=== PATIENT | female | born 1955 | race Caucasian/White ===

== ENCOUNTER 2020-06-10 07:15 | Outpatient (CLI) | payer OTHER ==
[2020-06-10 07:51] LABS: #Basophils 0.1 thou/uL (0.0-0.2); #Eosinphils 0.2 thou/uL (0.0-0.7); #Lymphocytes 1.6 thou/uL (1.20-3.40); #Monocytes 0.4 thou/uL (0.11-0.59); #Neutrophils 2.7 thou/uL (1.40-6.50); %Basophils 1.3 % (0.0-1.0); %Eosinophils 4.6 % (0.0-10.0); %Lymphocytes 31.5 % (21.0-51.0); %Monocytes 7.7 % (0.0-10.0); %Neutrophils 54.9 % (42.0-75.0); Hemoglobin 14.5 g/dL (12.0-16.0); Mean Corpuscular Hemoglobin 29.5 pg (27.0-31.0); Mean Corpuscular Volume 89.3 fL (78.0-98.0); Mean Platelet Volume 7.2 fL (7.4-10.4); Platelet Count 257 thou/uL (130-400); Red Blood Cell (RBC) Count 4.92 mill/uL (4.20-5.40)
[2020-06-10 08:03] LABS: ALT (SGPT) 19 U/L (8-55); AST (SGOT) 19 U/L (5-34); Albumin 4.3 g/dL (3.4-4.8); Alkaline Phosphatase 60 U/L (40-110); Anion Gap 14 mmol/L (10-20); BUN (Urea Nitrogen) 16 mg/dL (9.8-20.1); Bilirubin, Total 0.4 mg/dL (0.2-1.2); Calc. Creatinine Clearance 0 mL/min (70-130); Calcium 9.3 mg/dL (7.8-10.44); Carbon Dioxide 23 mmol/L (23-31); Cardiac Risk 7.8 (Less than 4.5); Chloride 108 mmol/L (98-107); Cholesterol 219 mg/dl (< 200 Desired); Estimated GFR-MDRD 70; Globulin 2.3 g/dL (2.4-3.5); Glucose 109 mg/dL (80-115); HDL Cholesterol 28 mg/dL (>60 Neg Risk); Potassium 4.1 mmol/L (3.5-5.1); Protein, Total 6.6 g/dL (6.0-8.3); Sodium 141 mmol/L (136-145); Triglycerides 553 mg/dL (Less than 150)
[2020-06-10] MEDS ORDERED: Iopamidol 370 76% 100 ML VIAL ONE (09:00)
[2020-06-10 09:36] LABS: Bilirubin Negative (Negative); Blood, Urine Negative (Negative); Clarity Clear (Clear); Glucose, Urine (Dipstick) Negative (Negative); Ketone, Urine Negative (Negative); Leukocyte Negative (Negative); Nitrite Negative (Negative); Protein, Urine (Dipstick) Negative (Neg-Trace); Specific Gravity, Urine 1.025 (1.005-1.030); Urobilinogen 0.2 mg/dL (Less than 2); pH, Urine 5.5 (5.0-9.0)
--- NOTE | 2020-06-10 10:43 | CT ---
CT ABDOMEN WITH IV CONTRAST: Date: 06/10/2020 HISTORY: Right upper quadrant pain. COMPARISON: 10/02/2015 CT. FINDINGS: The lung bases appear clear. Small hiatal hernia. There is a very small cyst in the right lobe of the liver in very close proximity to the gallbladder. No gallbladder wall thickening or pericholecystic fat stranding. No common duct dilatation. The pancreas is unremarkable. Spleen and adrenal glands are unremarkable. No evidence for renal calculus or acute obstruction. Normal appearing partially vis ualized appendix. No bowel obstruction. No abscess or abnormal fluid collection within the abdomen. IMPRESSION: Small hiatal hernia. Small right lobe of liver cyst adjacent to the gallbladder, all of which are sta ble. No significant acute process. POS: OFF
== END 2020-06-10 07:16 | disposition home or self-care (01) ==
LOC: NAV CT 07:15
PROVIDERS: ATTEND Internal Medicine
DX: R10.11 Right upper quadrant pain (principal); K80.20 Calculus of gallbladder without cholecystitis without obstruction; E03.9 Hypothyroidism, unspecified; L23.7 Allergic contact dermatitis due to plants, except food; K21.9 Gastro-esophageal reflux disease without esophagitis; K58.9 Irritable bowel syndrome, unspecified; M50.90 Cervical disc disorder, unspecified, unspecified cervical region; K44.9 Diaphragmatic hernia without obstruction or gangrene; K76.89 Other specified diseases of liver
CPT/HCPCS: 36415; 74160; 80053; 80061; 81003; 84443; 85025; Q9967

== ENCOUNTER 2021-08-18 08:38 | Outpatient (CLI) | payer BC ==
[2021-08-18] MEDS ORDERED: Iopamidol 370 76% 100 ML VIAL ONE (09:00)
== END 2021-08-18 08:39 | disposition home or self-care (01) ==
LOC: NAV CT 08:38
PROVIDERS: ATTEND Family Medicine
DX: K80.20 Calculus of gallbladder without cholecystitis without obstruction (principal); K58.9 Irritable bowel syndrome, unspecified
CPT/HCPCS: 36415; 74177; 82565; Q9967